=== PATIENT | male | born 1955 | race American Indian/Alaskan Native ===

== ENCOUNTER 2019-04-27 14:58 | Inpatient (IN) | payer OTHER ==
--- NOTE | 2019-04-27 15:13 | Emergency Department Report ---
Blank Doc - Documentation Documentation: This is a 63-year-old male that presents with uncontrolled hyperglycemia. This initial assessment/diagnostic orders/clinical plan/treatment(s) is/are subject to change based on patient's health status, clinical progression and re- assessment by fellow clinical providers in the ED. Further treatment and workup at subsequent clinical providers discretion. Patient/guardians urged not to elope from the ED as their condition may be serious if not clinically assessed and managed. Initial orders include: 1- Patient sent to MAIN for further evaluation and treatment 2- labs 3- UA
[2019-04-27 16:07] LABS: Basophils % (Auto) 0.5 % (0.0-1.8); Eosinophils # (Auto) 0.1 K/mm3 (0.0-0.4); Hematocrit 38.1 % (35.5-45.6); Hemoglobin 13.5 gm/dl (11.8-15.2); Lymphocytes # (Auto) 2.1 K/mm3 (1.2-5.4); Lymphocytes % (Auto) 24.6 % (13.4-35.0); Mean Corpuscular HGB Conc 36 % (32-34); Mean Corpuscular Volume 87 fl (84-94); Monocytes # (Auto) 0.5 K/mm3 (0.0-0.8); Monocytes % (Auto) 5.4 % (0.0-7.3); Platelet Count 227 K/mm3 (140-440); Red Blood Count 4.36 M/mm3 (3.65-5.03)
[2019-04-27] MEDS ORDERED: NACL 0.9% 1000 ML 1,000 ML IV ONE ×2 (16:09)
[2019-04-27] MEDS ORDERED: PROTONIX IV ONE (16:09)
--- NOTE | 2019-04-27 16:18 | Emergency Department Report ---
- General Chief complaint: Hyperglycemia Stated complaint: HIGH SUGAR LEVEL Time Seen by Provider: 04/27/19 15:12 Source: patient Mode of arrival: Ambulatory Limitations: No Limitations - History of Present Illness Initial comments: Mr. Ybarra is a 63-year-old male with history of diabetes mellitus, hypertension, dyslipidemia, cardiac disease status post pacemaker who presents with elevated blood sugar. He has blurry vision/dizziness. He's also had dark stools over the last 7 days. He felt that his sugar was elevated. His physician changed metformin from a short acting to long-acting version. He normally treated at [facility]. However, he was too sick and dizzy to drive to the [place]. He stated that he felt unsafe to drive that far. 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 Has had mild nondescript RUQ pain. He also has chronic back pain which is unchanged. MD Complaint: generalized weakness -: Gradual, days(s) (5-8) Severity: severe Severity scale (0 -10): 10 Consistency: constant Improves with: none Worsens with: exertion Context: new medication Associated Symptoms: dark stools - Related Data Home Medications Medication Instructions Recorded Confirmed Last Taken Atorvastatin [Lipitor Tab] 80 mg PO DAILY 04/27/19 04/27/19 Unknown Lisinopril [Zestril TAB] 40 mg PO DAILY 04/27/19 04/27/19 Unknown Metoprolol [Lopressor] 100 mg PO BID 04/27/19 04/27/19 Unknown amLODIPine [Norvasc] 10 mg PO DAILY 04/27/19 04/27/19 Unknown metFORMIN [Glucophage] 500 mg PO TID 04/27/19 04/27/19 Unknown Allergies Allergy/AdvReac Type Severity Reaction Status Date / Time No Known Allergies Allergy Unverified 04/27/19 15:12 ED Review of Systems ROS: Stated complaint: HIGH SUGAR LEVEL Other details as noted in HPI Comment: All other systems reviewed and negative Constitutional: malaise. denies: fever Gastrointestinal: abdominal pain, melena, hematochezia. denies: nausea, vomiting Neurological: weakness ED Past Medical Hx - Past Medical History Previous Medical History?: Yes Hx Hypertension: Yes Hx Diabetes: Yes Additional medical history: high cholesterol - Surgical History Past Surgical History?: Yes Hx Appendectomy: Yes Additional Surgical History: hernia repair. pacemaker - Social History Smoking Status: Current Every Day Smoker Substance Use Type: Alcohol - Medications Home Medications: Home Medications Medication Instructions Recorded Confirmed Last Taken Type Atorvastatin [Lipitor Tab] 80 mg PO DAILY 04/27/19 04/27/19 Unknown History Lisinopril [Zestril TAB] 40 mg PO DAILY 04/27/19 04/27/19 Unknown History Metoprolol [Lopressor] 100 mg PO BID 04/27/19 04/27/19 Unknown History amLODIPine [Norvasc] 10 mg PO DAILY 04/27/19 04/27/19 Unknown History metFORMIN [Glucophage] 500 mg PO TID 04/27/19 04/27/19 Unknown History ED Physical Exam - General Limitations: No Limitations General appearance: alert, in no apparent distress, appears intoxicated - Head Head exam: Present: atraumatic, normocephalic - Eye Eye exam: Present: normal appearance, scleral icterus. Absent: conjunctival injection - ENT ENT exam: Present: mucous membranes moist - Neck Neck exam: Present: normal inspection, full ROM - Respiratory Respiratory exam: Present: normal lung sounds bilaterally. Absent: respiratory distress, wheezes, rhonchi - Cardiovascular Cardiovascular Exam: Present: normal rhythm, tachycardia, normal heart sounds. Absent: systolic murmur, diastolic murmur, rubs, gallop - GI/Abdominal GI/Abdominal exam: Present: soft, normal bowel sounds. Absent: distended, tenderness, guarding, rebound - Rectal Rectal exam: Present: normal rectal tone, heme (+) stool, other (dark green stool) - exam: Present: normal inspection - Extremities Exam Extremities exam: Present: normal inspection - Back Exam Back exam: Present: normal inspection - Neurological Exam Neurological exam: Present: alert, oriented X3 - Psychiatric Psychiatric exam: Present: normal mood, other (labile affect) - Skin Skin exam: Present: warm, dry, intact, normal color. Absent: rash ED Course Vital Signs 04/27/19 15:12 Temperature 97.8 F Pulse Rate 111 H Respiratory 20 Rate Blood Pressure 98/62 O2 Sat by Pulse 98 Oximetry ED Medical Decision Making - Lab Data Result diagrams: 04/27/19 15:26 04/27/19 15:26 - EKG Data 04/27/19 17:19 EKG obtained 1705 Normal sinus rhythm rate 90 beats a minute left axis deviation normal QT interva l no ST elevation no signs of ischemia - Medical Decision Making 1. hyperglycemia hx of diabetes mellitus: IVF provided as well as insulin 2. UGIB, hx of dark stools, hemoccult+, elevated BUN, DDX: alcoholic gastritis, bleeding due to varices, PUD, IV protonix, GI consulted, discussed case wt Dr. Cardenas 3. Prerenal Acute kidney injury, Corrected sodium 131-134, mild hyponatremia attributed to alcohol abuse, will need volume, GFR 38 and anion gap 26 4. hyponatremia Critical Care Time: Yes Critical care time in (mins) excluding proc time.: 40 Critical care attestation.: If time is entered above; I have spent that time in minutes in the direct care of this critically ill patient, excluding procedure time. 40 minutes of critical care time excluding procedures were used in the care of the patient. Patient required multiple assessments and interventions. I reviewed the electronic medical record. I spoke with consultants involved in the care of the patient. ED Disposition Clinical Impression: MARY (acute kidney injury), UGIB (upper gastrointestinal bleed), Hyponatremia, Acute hyperglycemia Disposition: DC-[id number] OP ADMIT IP TO THIS HOSP Is pt being admited?: Yes Does the pt Need Aspirin: No Condition: Stable Referrals: PRIMARY CARE, [Primary Care Provider] - 3-5 Days
[2019-04-27 17:14] LABS: Hyaline Casts,Urine 2 /LPF
[2019-04-27 17:26] LABS: Bilirubin,Urine NEG (Negative); Blood,Urine NEG (Negative); Color,Urine Yellow (Yellow); Protein,Urine <15 mg/dL mg/dL (Negative); Urobilinogen,Urine < 2.0 mg/dL (<2.0)
[2019-04-27 17:27] LABS: Bacteria,Urine 1+ /HPF (Negative); Mucus,Urine FEW /HPF
[2019-04-27 17:35] LABS: INR 1.11 (0.87-1.13)
[2019-04-27] MEDS ORDERED: D50W (25GM) Syringe IV PRN (17:38)
--- NOTE | 2019-04-27 17:47 | History and Physical Report ---
History of Present Illness Chief complaint: I just feel sick, like my blood sugar is high History of present illness: 63 YO Male with DM, HTN, HLD, Cardiomyopathy S/P Pacemaker Placement, ETOH Depencence presents to ED for evaluation. Pt states that he feels sick. Pt acknowledges feeling weak, dizzy while driving. Pt drove himself to [facility]. Pt seen and evaluated in ED and found to have Uncontrolled DM, Acute kidney Injury, Acidosis, as well as ETOH dependence. Pt also reports dark stools over the past 1 week. Pt admitted to medical floor. Pt treated with IVF resuscitation therapy, Insulin therapy with improvement in symptoms. Pt denies fever, chills, CP, Palpitations, loss of vision, headache, BRBPR, productive cough, skin rash, unilateral leg swelling, calf pain, individual/family history of DVT/PE/Bleeding/Blood Clotting Disorders. No prior admission for review. All listed medication reconciled at time of admission. Past History Past Medical History: diabetes, hypertension, hyperlipidemia, other (Cardiomyopathy) Past Surgical History: appendectomy, hernia repair, Other (pacemaker placement) Social history: single, smoking, alcohol abuse Family history: diabetes, hypertension Medications and Allergies Allergies Allergy/AdvReac Type Severity Reaction Status Date / Time No Known Allergies Allergy Unverified 04/27/19 15:12 Home Medications Medication Instructions Recorded Confirmed Last Taken Type Atorvastatin [Lipitor Tab] 80 mg PO DAILY 04/27/19 04/27/19 Unknown History Lisinopril [Zestril TAB] 40 mg PO DAILY 04/27/19 04/27/19 Unknown History Metoprolol [Lopressor] 100 mg PO BID 04/27/19 04/27/19 Unknown History amLODIPine [Norvasc] 10 mg PO DAILY 04/27/19 04/27/19 Unknown History metFORMIN [Glucophage] 500 mg PO TID 04/27/19 04/27/19 Unknown History Active Meds: Active Medications Amlodipine Besylate (Norvasc) 10 mg PO DAILY NADIA Lisinopril (Zestril) 40 mg PO DAILY NADIA Metoprolol Tartrate (Lopressor) 100 mg PO BID [facility] Miscellaneous Medication (Atorvastatin [Lipitor]) 80 mg PO DAILY NADIA Review of Systems Constitutional: fatigue, weakness, no weight loss, no weight gain, no fever, no chills Ears, nose, mouth and throat: no ear pain, no ear discharge, no tinnitis, no nasal congestion Cardiovascular: no chest pain, no orthopnea, no edema, no syncope, no lightheadedness, no shortness of breath Respiratory: no cough, no cough with sputum, no excessive sputum, no shortness of breath, no dyspnea on exertion, no congestion, no pleurisy, no pain on inspiration, no snoring Gastrointestinal: no abdominal pain, no nausea, no vomiting, no diarrhea, no hematemesis Genitourinary Male: no hematuria, no flank pain, no discharge, no urinary frequency, no urinary hesitancy, no nocturia Rectal: no pain, no incontinence, no bleeding, no hemorrhoids, no discharge Musculoskeletal: no neck stiffness, no neck pain, no shooting arm pain, no arm numbness/tingling, no low back pain, no shooting leg pain, no leg numbness/tingling Integumentary: no rash, no pruritis, no redness, no sores Neurological: no transient paralysis, no paralysis, no weakness, no parathesias, no tingling, no seizures, no syncope, no tremors Psychiatric: no anxiety, no memory loss, no change in sleep habits, no sleep disturbances, no insomnia, no hypersomnia, no change in appetite, no change in libido Endocrine: no cold intolerance, no heat intolerance, no polyphagia, no excessive thirst, no polydipsia, no polyuria, no nocturia Hematologic/Lymphatic: no easy bruising, no easy bleeding, no lymphadenopathy, no lymphedema Allergic/Immunologic: no urticaria, no allergic rhinitis, no wheezing, no persistent infections, no anaphylaxis, no angioedema Exam - Constitutional Vitals: Temp Pulse Resp BP Pulse Ox 97.8 F 111 H 20 98/62 98 04/27/19 15:12 04/27/19 15:12 04/27/19 15:12 04/27/19 15:12 04/27/19 15:12 General appearance: Present: mild distress - EENT Eyes: Present: PERRL ENT: hearing intact, clear oral mucosa - Neck Neck: Present: supple, normal ROM - Respiratory Respiratory effort: normal Respiratory: bilateral: CTA - Cardiovascular Heart Sounds: Present: S1 & S2. Absent: rub, click - Extremities Extremities: pulses symmetrical, No edema Peripheral Pulses: within normal limits - Abdominal General gastrointestinal: Present: soft, non-tender, non-distended, normal bowel sounds Male genitourinary: Present: normal - Integumentary Integumentary: Present: clear, warm, dry - Musculoskeletal Musculoskeletal: gait normal, strength equal bilaterally - Psychiatric Psychiatric: appropriate mood/affect, intact judgment & insight - Neurologic Neurologic: CNII-XII intact, moves all extremities Results - Labs CBC & Chem 7: 04/27/19 15:26 04/27/19 15:26 Labs: Abnormal lab results 04/27/19 04/27/19 Range/Units 15:26 15:26 MCHC 36 H (32-34) % RDW 13.0 L (13.2-15.2) % Sodium 124 L (137-145) mmol/L Chloride 84.9 L (98-107) mmol/L Carbon Dioxide 18 L (22-30) mmol/L BUN 60 H (9-20) mg/dL Creatinine 1.8 H (0.8-1.5) mg/dL Glucose 537 H* (75-100) mg/dL Assessment and Plan - Patient Problems (1) MARY (acute kidney injury) Current Visit: Yes Status: Acute Plan to address problem: IVF resuscitation therapy, monitor uop q shift, serial cmp, monitor serum creatnine, avoid nephrotoxic agents. (2) Acute hyperglycemia Current Visit: Yes Status: Acute Plan to address problem: Insulin sliding scale, IVF resuscitation therapy, serial bmp, (3) Acidosis Current Visit: Yes Status: Acute Plan to address problem: IV bicarbonate therapy, serial bmp, (4) EtOH dependence Current Visit: Yes Status: Acute Qualifiers: Complication of substance-induced condition: uncomplicated Plan to address problem: thiamine, folic acid, multivitamin, CIWA protocol (5) Hyponatremia Current Visit: Yes Status: Acute Plan to address problem: IVF resuscitation therapy, treat uncontrolled DM, repeat bmp, (6) DVT prophylaxis Current Visit: Yes Status: Acute Plan to address problem: SCD to BLE while in bed, prophylactic heparin
[2019-04-27] MEDS ORDERED: THERAGRAN Tab PO ONE (17:53)
[2019-04-27] MEDS ORDERED: VITAMIN B-1 PO ONE (17:53)
[2019-04-27] MEDS ORDERED: ATIVAN PO PRN (17:53)
[2019-04-27] MEDS ORDERED: SODIUM CHLORIDE FLUSH SYRINGE 10 ML IV PRN (18:00)
[2019-04-27] MEDS ORDERED: TYLENOL PO PRN (18:00)
[2019-04-27] MEDS ORDERED: PROVENTIL IH PRN (18:00)
[2019-04-27] MEDS ORDERED: ZOFRAN IV PRN (18:00)
[2019-04-27 18:03] LABS: Partial Thromboplastin Time 32.3 Sec. (24.2-36.6)
[2019-04-27] MEDS: HumaLOG SUB-Q SCH (18:13)
[2019-04-27] MEDS: FOLVITE PO SCH (18:23)
--- NOTE | 2019-04-27 18:32 | Gastroenterology Consultation ---
History of Present Illness - Reason for Consult Consult date: 04/27/19 abdominal pain, dark stool Requesting physician: SAM MONTENEGRO - History of Present Illness This is a 63 yo male with pmh of DM, HTN, cardiomyopathy s/p pacemaker placement, ETOH dependence presenting to the ED for weakness and found to have hyperglycemia with BG in 500s. He also having dark stools for the past 1-2 weeks intermittently and epigastric abdominal pain with eating or drinking. Denies any prior GI bleeding history. He takes motrin back 2 tabs daily for 1 month. Denies any bright red blood in the stool. Reports his last colonoscopy was Sep 2018 at the [facility] with polyps and told to repeat in 1 year. Medication list updated and reviewed Past History Past Medical History: diabetes, hypertension, hyperlipidemia, other (Cardiomyopathy) Past Surgical History: appendectomy, hernia repair, Other (pacemaker placement) Social history: single, smoking, alcohol abuse Family history: diabetes, hypertension Medications and Allergies Allergies Allergy/AdvReac Type Severity Reaction Status Date / Time No Known Allergies Allergy Unverified 04/27/19 15:12 Home Medications Medication Instructions Recorded Confirmed Last Taken Type Atorvastatin [Lipitor Tab] 80 mg PO DAILY 04/27/19 04/27/19 Unknown History Lisinopril [Zestril TAB] 40 mg PO DAILY 04/27/19 04/27/19 Unknown History Metoprolol [Lopressor] 100 mg PO BID 04/27/19 04/27/19 Unknown History amLODIPine [Norvasc] 10 mg PO DAILY 04/27/19 04/27/19 Unknown History metFORMIN [Glucophage] 500 mg PO TID 04/27/19 04/27/19 Unknown History Active Meds: Active Medications Acetaminophen (Tylenol) 650 mg PO Q4H PRN PRN Reason: Pain MILD(1-3)/Fever >100.5/VILLAR Albuterol (Proventil) 2.5 mg IH Q4HRT PRN PRN Reason: Shortness Of Breath Amlodipine Besylate (Norvasc) 10 mg PO DAILY [facility] Atorvastatin Calcium (Lipitor) 80 mg PO QDAY [facility] Dextrose (D50w (25gm) Syringe) 50 ml IV PRN PRN PRN Reason: Hypoglycemia Famotidine (Pepcid) 10 mg PO BID [facility] Folic Acid (Folvite) 1 mg PO QDAY [facility] Last Admin: 04/27/19 18:23 Dose: 1 mg Documented by: Heparin Sodium (Porcine) (Heparin) 5,000 unit SUB-Q Q12HR [facility] Sodium Chloride (Nacl 0.9% 1000 Ml) 1,000 mls @ 100 mls/hr IV DIRECT NADIA Insulin Human Lispro (Humalog) 0 unit SUB-Q Q6HR [facility]; Protocol Last Admin: 04/27/19 18:13 Dose: 14 unit Documented by: Lisinopril (Zestril) 40 mg PO DAILY [facility] Lorazepam (Ativan) 2 mg PO Q1HR PRN PRN Reason: CIWA-Ar 8-15 Metoprolol Tartrate (Lopressor) 100 mg PO BID [facility] Ondansetron HCl (Zofran) 4 mg IV Q8H PRN PRN Reason: Nausea And Vomiting Pantoprazole Sodium (Protonix) 40 mg IV BID [facility] Sodium Chloride (Sodium Chloride Flush Syringe 10 Ml) 10 ml IV BID [facility] Sodium Chloride (Sodium Chloride Flush Syringe 10 Ml) 10 ml IV PRN PRN PRN Reason: LINE FLUSH Review of Systems - Review of Systems All systems: negative Constitutional: no weight loss, no weight gain Cardiovascular: no chest pain Respiratory: no cough, no shortness of breath Gastrointestinal: abdominal pain, nausea, melena, no BRBPR Neurological: weakness Exam - Constitutional Vital Signs: Temp Pulse Resp BP Pulse Ox 97.8 F 111 H 18 98/62 100 04/27/19 15:12 04/27/19 15:12 04/27/19 16:00 04/27/19 15:12 04/27/19 16:00 General appearance: no acute distress, well-nourished - EENT Eyes: EOM intact ENT: hearing intact, clear oral mucosa - Neck Neck: supple - Respiratory Respiratory effort: normal Respiratory: bilateral: CTA - Cardiovascular Rhythm: regular Heart Sounds: Present: S1 & S2 - Gastrointestinal General gastrointestinal: Present: soft, non-tender, non-distended - Integumentary Integumentary: Present: clear, warm - Neurologic Neurological: alert and oriented x3 - Labs CBC & Chem 7: 04/27/19 15:26 04/27/19 15:26 Lab Results: Laboratory Results - last 24 hr 04/27/19 04/27/19 04/27/19 15:26 15:26 15:26 WBC 8.6 RBC 4.36 Hgb 13.5 Hct 38.1 MCV 87 MCH 31 MCHC 36 H RDW 13.0 L Plt Count 227 Lymph % (Auto) 24.6 [place] % (Auto) 5.4 Eos % (Auto) 1.0 Baso % (Auto) 0.5 Lymph # 2.1 [place] # 0.5 Eos # 0.1 Baso # 0.0 Seg Neutrophils % 68.5 Seg Neutrophils # 5.9 PT INR APTT VBG pH 7.345 Sodium 124 L Potassium 4.9 Chloride 84.9 L Carbon Dioxide 18 L Anion Gap 26 BUN 60 H Creatinine 1.8 H Estimated GFR 38 BUN/Creatinine Ratio 33 Glucose 537 H* POC Glucose Calcium 10.0 Urine Color Urine Turbidity Urine pH Ur Specific [place] Urine Protein Urine Glucose (UA) Urine Ketones Urine Blood Urine Nitrite Ur Reducing Substances Urine Bilirubin Urine Ictotest Urine Urobilinogen Ur Leukocyte Esterase Urine WBC (Auto) Urine RBC (Auto) U Epithel Cells (Auto) Urine Bacteria (Auto) Hyaline Casts Urine Mucus 04/27/19 04/27/19 04/27/19 16:47 17:07 18:15 WBC RBC Hgb Hct MCV MCH MCHC RDW Plt Count Lymph % (Auto) [place] % (Auto) Eos % (Auto) Baso % (Auto) Lymph # [place] # Eos # Baso # Seg Neutrophils % Seg Neutrophils # PT 14.0 INR 1.11 APTT 32.3 VBG pH Sodium Potassium Chloride Carbon Dioxide Anion Gap BUN Creatinine Estimated GFR BUN/Creatinine Ratio Glucose POC Glucose 445 H Calcium Urine Color Yellow Urine Turbidity Clear Urine pH 5.0 Ur Specific [place] 1.014 Urine Protein <15 mg/dl Urine Glucose (UA) >=500 Urine Ketones Tr Urine Blood Neg Urine Nitrite Neg Ur Reducing Substances Not Reportable Urine Bilirubin Neg Urine Ictotest Not Reportable Urine Urobilinogen < 2.0 Ur Leukocyte Esterase Neg Urine WBC (Auto) 1.0 Urine RBC (Auto) 2.0 U Epithel Cells (Auto) < 1.0 Urine Bacteria (Auto) 1+ Hyaline Casts 2 Urine Mucus Few Assessment and Plan # Dark stools # Abdominal pain # Hyperglycemia. - suspect gastritis vs PUD in the setting of NSAID and alcohol use. - Hgb at 13 on admission. - no active bleeding at this time. Rec: - cont with protonix bid. - monitor H/H serially. - management for hyperglycemia per primary team. - will consider EGD based on clinical progression/lab trend and once BG better controlled.
[2019-04-27 18:34] LABS: Albumin 4.5 g/dL (3.9-5); Bilirubin,Direct 0.3 mg/dL (0-0.2)
[2019-04-27] MEDS: SODIUM CHLORIDE FLUSH SYRINGE 10 ML IV SCH (22:37)
[2019-04-27] MEDS: PEPCID PO SCH (22:37)
[2019-04-27] MEDS: PROTONIX IV SCH (22:37)
[2019-04-27] MEDS: LOPRESSOR PO SCH (22:37)
[2019-04-27] MEDS: HEPARIN SUB-Q SCH (22:38)
[2019-04-28] MEDS: HumaLOG SUB-Q SCH ×5 (00:22→22:33)
[2019-04-28] MEDS: NACL 0.9% 1000 ML 1,000 ML IV SCH ×2 (00:22→22:43)
--- NOTE | 2019-04-28 08:31 | Progress Note ---
Assessment and Plan Assessment and plan: --MARY (acute kidney injury) Current Visit: Yes Status: Acute Plan to address problem: Due to vasomotor nephropathy IVF resuscitation therapy, Input output monitoring , monitor renal function , avoid nephrotoxins Nephrology evaluation if needed --Type 2 diabetes mellitus with acute hyperglycemia: Current Visit: Yes Status: Acute Plan to address problem: Insulin sliding scale, IVF resuscitation therapy, long acting insulin A1c less than 4.2, diabetic education, nutrition consult --Metabolic Acidosis Current Visit: Yes Status: Acute Plan to address problem: IV bicarbonate therapy, serial bmp, --EtOH dependence Current Visit: Yes Status: Acute Plan to address problem: thiamine, folic acid, multivitamin, CIWA protocol --Hyponatremia Current Visit: Yes Status: Acute Plan to address problem: IVF resuscitation therapy, treat uncontrolled DM, repeat bmp, --DVT prophylaxis Current Visit: Yes Status: Acute Plan to address problem: SCD to BLE while in bed, prophylactic heparin Plan of care reviewed with the patient and his nurse History Interval history: 3-year-old male patient was admitted through emergency room with uncontrolled blood sugars as well as rectal bleeding Patient was evaluated by GI, patient is hemodynamically stable and no new episodes of rectal bleeding Blood sugars are uncontrolled. Patient complains of generalized weakness Alert awake oriented 3 ,vital signs reviewed Hospitalist Physical - Constitutional Vitals: Temp Pulse Resp BP Pulse Ox 98 F 83 18 112/69 99 04/28/19 05:00 04/28/19 05:00 04/28/19 05:00 04/28/19 05:00 04/28/19 05:00 General appearance: Present: no acute distress, well-nourished, obese - EENT Eyes: Present: PERRL, EOM intact - Neck Neck: Present: supple, normal ROM - Respiratory Respiratory effort: normal Respiratory: bilateral: diminished, negative: rales, rhonchi, wheezing - Cardiovascular Rhythm: regular Heart Sounds: Present: S1 & S2 - Extremities Extremities: no ischemia, No edema - Abdominal General gastrointestinal: soft, non-tender, non-distended, normal bowel sounds - Integumentary Integumentary: Present: clear, warm - Psychiatric Psychiatric: appropriate mood/affect, cooperative - Neurologic Neurologic: CNII-XII intact, moves all extremities Results - Labs CBC & Chem 7: 04/28/19 08:40 04/28/19 08:40 Labs: Laboratory Last Values WBC 8.6 K/mm3 (4.5-11.0) 04/27/19 15: RBC 4.36 M/mm3 (3.65-5.03) 04/27/19 15: Hgb 13.5 gm/dl (11.8-15.2) 04/27/19 15: Hct 38.1 % (35.5-45.6) 04/27/19 15: MCV 87 fl (84-94) 04/27/19 15: MCH 31 pg (28-32) 04/27/19 15: MCHC 36 % (32-34) H 04/27/19: RDW 13.0 % (13.2-15.2) L 04/27/19: Plt Count 227 K/mm3 (140-440) 04/27/19 15: Lymph % (Auto) 24.6 % (13.4-35.0) 04/27/19: [place] % (Auto) 5.4 % (0.0-7.3) 04/27/19 15: Eos % (Auto) 1.0 % (0.0-4.3) 04/27/19: Baso % (Auto) 0.5 % (0.0-1.8) 04/27/19 15: Lymph # 2.1 K/mm3 (1.2-5.4) 04/27/19 15: [place] # 0.5 K/mm3 (0.0-0.8) 04/27/19: Eos # 0.1 K/mm3 (0.0-0.4) 04/27/19 15: Baso # 0.0 K/mm3 (0.0-0.1) 04/27/19 15: Seg Neutrophils % 68.5 % (40.0-70.0) 04/27/19: Seg Neutrophils # 5.9 K/mm3 (1.8-7.7) 04/27/19 15: PT 14.0 Sec. (12.2-14.9) 04/27/19 17:07 INR 1.11 (0.87-1.13) 04/27/19 17:07 APTT 32.3 Sec. (24.2-36.6) 04/27/19 17:07 VBG pH 7.345 (7.320-7.420) 04/27/19 15:26 Sodium 124 mmol/L (137-145) L 04/27/19 15:26 Potassium 4.9 mmol/L (3.6-5.0) 04/27/19 15:26 Chloride 84.9 mmol/L (98-107) L 04/27/19 15:26 Carbon Dioxide 18 mmol/L (22-30) L 04/27/19 15:26 26 mmol/L 04/27/19 15:26 BUN 60 mg/dL (9-20) H 04/27/19 15:26 1.8 mg/dL (0.8-1.5) H 04/27/19 15:26 Estimated GFR 38 ml/min 04/27/19 15:26 33 % 04/27/19 15:26 Glucose 537 mg/dL (75-100) H* 04/27/19 15:26 POC Glucose 255 (70-105) H 04/28/19 06:28 < 4.2 % (4-6) 04/27/19 18:04 Calcium 10.0 mg/dL (8.4-10.2) 04/27/19 15:26 1.20 mg/dL (0.1-1.2) 04/27/19 16:15 0.3 mg/dL (0-0.2) H 04/27/19 16:15 0.9 mg/dL 04/27/19 16:15 AST 28 units/L (5-40) 04/27/19 16:15 ALT 32 units/L (7-56) 04/27/19 16:15 101 units/L (35-129) 04/27/19 16:15 7.3 g/dL (6.3-8.2) 04/27/19 16:15 4.5 g/dL (3.9-5) 04/27/19 16:15 1.6 % 04/27/19 16:15 8 units/L (13-60) L 04/27/19 16:18 Yellow (Yellow) 04/27/19 16:47 Clear (Clear) 04/27/19 16:47 5.0 (5.0-7.0) 04/27/19 16:47 Ur Specific [place] 1.014 (1.003-1.030) 04/27/19 16:47 <15 mg/dl mg/dL (Negative) 04/27/19 16:47 >=500 mg/dL (Negative) 04/27/19 16:47 Tr mg/dL (Negative) 04/27/19 16:47 Neg (Negative) 04/27/19 16:47 Neg (Negative) 04/27/19 16:47 Ur Reducing Substances Not Reportable 04/27/19 16:47 Neg (Negative) 04/27/19 16:47 Not Reportable 04/27/19 16:47 < 2.0 mg/dL (<2.0) 04/27/19 16:47 Ur Leukocyte Esterase Neg (Negative) 04/27/19 16:47 1.0 /HPF (0.0-6.0) 04/27/19 16:47 2.0 /HPF (0.0-6.0) 04/27/19 16:47 U Epithel Cells (Auto) < 1.0 /HPF (0-13.0) 04/27/19 16:47 1+ /HPF (Negative) 04/27/19 16:47 Hyaline Casts 2 /LPF 04/27/19 16:47 Few /HPF 04/27/19 16:47 Plasma/Serum Alcohol < 0.01 % (0-0.07) 04/27/19 16:16 Active Medications - Current Medications Current Medications: Generic Name Dose Route Start Last Admin Trade Name Freq PRN Reason Stop Dose Admin Acetaminophen 650 mg 04/27/19 18:00 Tylenol PO Q4H PRN Pain MILD(1-3)/Fever >100.5/VILLAR Albuterol 2.5 mg 04/27/19 18:00 Proventil IH Q4HRT PRN Shortness Of Breath Amlodipine Besylate 10 mg 04/28/19 10:00 Norvasc PO DAILY NADIA Atorvastatin Calcium 80 mg 04/28/19 10:00 Lipitor PO QDAY NADIA Dextrose 50 ml 04/27/19 17:38 D50w (25gm) Syringe IV PRN PRN Hypoglycemia Famotidine 10 mg 04/27/19 22:00 04/27/19 22:37 Pepcid PO 10 mg BID NADIA Administration Folic Acid 1 mg 04/27/19 17:53 04/27/19 18:23 Folvite PO 1 mg QDAY NADIA Administration Heparin Sodium (Porcine) 5,000 unit 04/27/19 22:00 04/27/19 22:38 Heparin SUB-Q 5,000 unit Q12HR NADIA Administration Sodium Chloride 1,000 mls @ 100 mls/hr 04/27/19 18:00 04/28/19 00:22 Nacl 0.9% 1000 Ml IV 100 mls/hr DIRECT NADIA Administration Insulin Human Isoph/Insulin Regular 12 unit 04/28/19 09:30 Humulin 70/30 SUB-Q BIDDIAB NADIA Insulin Human Lispro 0 unit 04/28/19 11:30 Humalog SUB-Q ACHS [facility] Protocol Lisinopril 40 mg 04/28/19 10:00 Zestril PO DAILY NADIA Lorazepam 2 mg 04/27/19 17:53 Ativan PO Q1HR PRN CIWA-Ar 8-15 Metoprolol Tartrate 100 mg 04/27/19 22:00 04/27/19 22:37 Lopressor PO Not Given BID NADIA Nicotine 14 mg 04/28/19 10:00 Habitrol TD QDAY NADIA Ondansetron HCl 4 mg 04/27/19 18:00 Zofran IV Q8H PRN Nausea And Vomiting Pantoprazole Sodium 40 mg 04/27/19 22:00 04/27/19 22:37 Protonix IV 40 mg BID NADIA Administration Sodium Chloride 10 ml 04/27/19 22:00 04/27/19 22:37 Sodium Chloride Flush Syringe 10 Ml IV 10 ml BID NADIA Administration Sodium Chloride 10 ml 04/27/19 18:00 Sodium Chloride Flush Syringe 10 Ml IV PRN PRN LINE FLUSH
[2019-04-28 09:38] LABS: Basophils % (Auto) 0.5 % (0.0-1.8); Eosinophils # (Auto) 0.2 K/mm3 (0.0-0.4); Eosinophils % (Auto) 3.1 % (0.0-4.3); Hematocrit 32.2 % (35.5-45.6); Hemoglobin 10.8 gm/dl (11.8-15.2); Lymphocytes # (Auto) 1.5 K/mm3 (1.2-5.4); Lymphocytes % (Auto) 26.9 % (13.4-35.0); Mean Corpuscular HGB Conc 34 % (32-34); Mean Corpuscular Volume 90 fl (84-94); Monocytes # (Auto) 0.4 K/mm3 (0.0-0.8); Monocytes % (Auto) 7.8 % (0.0-7.3); Platelet Count 165 K/mm3 (140-440); Red Cell Distribution Width 12.8 % (13.2-15.2)
[2019-04-28] MEDS ORDERED: NON-FORMULARY (Atorvastatin [Lipitor] 80 MG) PO SCH (10:00)
[2019-04-28 10:02] LABS: BUN/Creatinine Ratio 33; Blood Urea Nitrogen 43 mg/dL (9-20); Calcium 8.9 mg/dL (8.4-10.2); Hemolysis Index 4
--- NOTE | 2019-04-28 10:29 | Gastroenterology Progress Note ---
Assessment and Plan # Dark stools # Abdominal pain # Hyperglycemia. -H/H 10.8/32.2 -continue to monitor H/H and transfuse as needed -no active signs of bleeding overnight or this am per pt -etiology-suspect gastritis vs PUD in the setting of NSAID and alcohol use -currently w/o GI complaints such as abd pain or N/V. Tolerating diet. -no plan for scope at this time -continue PPI -optimize glycemic control -alcohol cessation discussed/encouraged with patient -if H/H remains stable with no further bleeding, patient okay to be d/c per GI standpoint with f/u in clinic -will sign off, please call if needed Subjective Date of service: 04/28/19 Principal diagnosis: UGIB Interval history: Patient sitting up on the side of the bed this am w/o distress or GI complaints. Denies any active signs of bleeding overnight or this am. No abd pain or N/V. Tolerating diet. Objective - Constitutional Vitals: Temp Pulse Resp BP Pulse Ox 98 F 83 18 112/69 97 04/28/19 05:00 04/28/19 05:00 04/28/19 05:00 04/28/19 05:00 04/28/19 09:38 General appearance: no acute distress - Respiratory Respiratory effort: normal - Cardiovascular Rhythm: regular - Gastrointestinal General gastrointestinal: Present: soft, non-tender, non-distended, normal bowel sounds - Neurologic Neurological: alert and oriented x3 - Labs CBC & Chem 7: 04/28/19 08:40 04/28/19 08:40 Labs: Laboratory Results - last 24 hr 04/27/19 04/27/19 04/27/19 15:26 15:26 15:26 WBC 8.6 RBC 4.36 Hgb 13.5 Hct 38.1 MCV 87 MCH 31 MCHC 36 H RDW 13.0 L Plt Count 227 Lymph % (Auto) 24.6 [place] % (Auto) 5.4 Eos % (Auto) 1.0 Baso % (Auto) 0.5 Lymph # 2.1 [place] # 0.5 Eos # 0.1 Baso # 0.0 Seg Neutrophils % 68.5 Seg Neutrophils # 5.9 PT INR APTT VBG pH 7.345 Sodium 124 L Potassium 4.9 Chloride 84.9 L Carbon Dioxide 18 L Anion Gap 26 BUN 60 H Creatinine 1.8 H Estimated GFR 38 BUN/Creatinine Ratio 33 Glucose 537 H* POC Glucose Hemoglobin A1c Calcium 10.0 Total Bilirubin Direct Bilirubin Indirect Bilirubin AST ALT Alkaline Phosphatase Total Protein Albumin Albumin/Globulin Ratio Lipase Urine Color Urine Turbidity Urine pH Ur Specific [place] Urine Protein Urine Glucose (UA) Urine Ketones Urine Blood Urine Nitrite Ur Reducing Substances Urine Bilirubin Urine Ictotest Urine Urobilinogen Ur Leukocyte Esterase Urine WBC (Auto) Urine RBC (Auto) U Epithel Cells (Auto) Urine Bacteria (Auto) Hyaline Casts Urine Mucus Plasma/Serum Alcohol 04/27/19 04/27/19 04/27/19 16:15 16:16 16:18 WBC RBC Hgb Hct MCV MCH MCHC RDW Plt Count Lymph % (Auto) [place] % (Auto) Eos % (Auto) Baso % (Auto) Lymph # [place] # Eos # Baso # Seg Neutrophils % Seg Neutrophils # PT INR APTT VBG pH Sodium Potassium Chloride Carbon Dioxide Anion Gap BUN Creatinine Estimated GFR BUN/Creatinine Ratio Glucose POC Glucose Hemoglobin A1c Calcium Total Bilirubin 1.20 Direct Bilirubin 0.3 H Indirect Bilirubin 0.9 AST 28 ALT 32 Alkaline Phosphatase 101 Total Protein 7.3 Albumin 4.5 Albumin/Globulin Ratio 1.6 Lipase 8 L Urine Color Urine Turbidity Urine pH Ur Specific [place] Urine Protein Urine Glucose (UA) Urine Ketones Urine Blood Urine Nitrite Ur Reducing Substances Urine Bilirubin Urine Ictotest Urine Urobilinogen Ur Leukocyte Esterase Urine WBC (Auto) Urine RBC (Auto) U Epithel Cells (Auto) Urine Bacteria (Auto) Hyaline Casts Urine Mucus Plasma/Serum Alcohol < 0.01 04/27/19 04/27/19 04/27/19 16:47 17:07 18:04 WBC RBC Hgb Hct MCV MCH MCHC RDW Plt Count Lymph % (Auto) [place] % (Auto) Eos % (Auto) Baso % (Auto) Lymph # [place] # Eos # Baso # Seg Neutrophils % Seg Neutrophils # PT 14.0 INR 1.11 APTT 32.3 VBG pH Sodium Potassium Chloride Carbon Dioxide Anion Gap BUN Creatinine Estimated GFR BUN/Creatinine Ratio Glucose POC Glucose Hemoglobin A1c < 4.2 Calcium Total Bilirubin Direct Bilirubin Indirect Bilirubin AST ALT Alkaline Phosphatase Total Protein Albumin Albumin/Globulin Ratio Lipase Urine Color Yellow Urine Turbidity Clear Urine pH 5.0 Ur Specific [place] 1.014 Urine Protein <15 mg/dl Urine Glucose (UA) >=500 Urine Ketones Tr Urine Blood Neg Urine Nitrite Neg Ur Reducing Substances Not Reportable Urine Bilirubin Neg Urine Ictotest Not Reportable Urine Urobilinogen < 2.0 Ur Leukocyte Esterase Neg Urine WBC (Auto) 1.0 Urine RBC (Auto) 2.0 U Epithel Cells (Auto) < 1.0 Urine Bacteria (Auto) 1+ Hyaline Casts 2 Urine Mucus Few Plasma/Serum Alcohol 04/27/19 04/27/19 04/28/19 18:15 23:56 06:28 WBC RBC Hgb Hct MCV MCH MCHC RDW Plt Count Lymph % (Auto) [place] % (Auto) Eos % (Auto) Baso % (Auto) Lymph # [place] # Eos # Baso # Seg Neutrophils % Seg Neutrophils # PT INR APTT VBG pH Sodium Potassium Chloride Carbon Dioxide Anion Gap BUN Creatinine Estimated GFR BUN/Creatinine Ratio Glucose POC Glucose 445 H 383 H 255 H Hemoglobin A1c Calcium Total Bilirubin Direct Bilirubin Indirect Bilirubin AST ALT Alkaline Phosphatase Total Protein Albumin Albumin/Globulin Ratio Lipase Urine Color Urine Turbidity Urine pH Ur Specific [place] Urine Protein Urine Glucose (UA) Urine Ketones Urine Blood Urine Nitrite Ur Reducing Substances Urine Bilirubin Urine Ictotest Urine Urobilinogen Ur Leukocyte Esterase Urine WBC (Auto) Urine RBC (Auto) U Epithel Cells (Auto) Urine Bacteria (Auto) Hyaline Casts Urine Mucus Plasma/Serum Alcohol 04/28/19 04/28/19 08:40 08:40 WBC 5.5 RBC 3.60 L Hgb 10.8 L Hct 32.2 L MCV 90 MCH 30 MCHC 34 RDW 12.8 L Plt Count 165 Lymph % (Auto) 26.9 [place] % (Auto) 7.8 H Eos % (Auto) 3.1 Baso % (Auto) 0.5 Lymph # 1.5 [place] # 0.4 Eos # 0.2 Baso # 0.0 Seg Neutrophils % 61.7 Seg Neutrophils # 3.4 PT INR APTT VBG pH Sodium 132 L D Potassium 3.8 D Chloride 96.2 L Carbon Dioxide 23 Anion Gap 17 BUN 43 H Creatinine 1.3 Estimated GFR > 60 BUN/Creatinine Ratio 33 Glucose 330 H POC Glucose Hemoglobin A1c Calcium 8.9 Total Bilirubin Direct Bilirubin Indirect Bilirubin AST ALT Alkaline Phosphatase Total Protein Albumin Albumin/Globulin Ratio Lipase Urine Color Urine Turbidity Urine pH Ur Specific [place] Urine Protein Urine Glucose (UA) Urine Ketones Urine Blood Urine Nitrite Ur Reducing Substances Urine Bilirubin Urine Ictotest Urine Urobilinogen Ur Leukocyte Esterase Urine WBC (Auto) Urine RBC (Auto) U Epithel Cells (Auto) Urine Bacteria (Auto) Hyaline Casts Urine Mucus Plasma/Serum Alcohol
[2019-04-28] MEDS: FOLVITE PO SCH (10:57)
[2019-04-28] MEDS: PEPCID PO SCH ×2 (10:57→22:33)
[2019-04-28] MEDS: HABITROL TD SCH (10:57)
[2019-04-28] MEDS ORDERED: PROTONIX PO SCH (11:00)
[2019-04-28] MEDS: SODIUM CHLORIDE FLUSH SYRINGE 10 ML IV SCH (11:01)
[2019-04-28] MEDS: HEPARIN SUB-Q SCH ×2 (11:01→22:33)
[2019-04-28] MEDS: LOPRESSOR PO SCH ×2 (11:41→22:33)
[2019-04-28] MEDS: NORVASC PO SCH (11:41)
[2019-04-28] MEDS: ZESTRIL PO SCH (11:42)
[2019-04-28] MEDS: PROTONIX IV SCH (14:39)
[2019-04-29 06:27] LABS: Hematocrit 29.7 % (35.5-45.6); Hemoglobin 10.3 gm/dl (11.8-15.2)
[2019-04-29] MEDS: HumaLOG SUB-Q SCH ×2 (08:49→13:53)
[2019-04-29] MEDS: NACL 0.9% 1000 ML 1,000 ML IV SCH (08:50)
[2019-04-29] MEDS: PEPCID PO SCH (10:31)
[2019-04-29] MEDS: HABITROL TD SCH (10:31)
[2019-04-29] MEDS: ZESTRIL PO SCH (10:31)
[2019-04-29] MEDS: NORVASC PO SCH (10:31)
[2019-04-29] MEDS: FOLVITE PO SCH (10:31)
[2019-04-29] MEDS: LOPRESSOR PO SCH (10:31)
[2019-04-29] MEDS: HEPARIN SUB-Q SCH (10:32)
[2019-04-29] MEDS: SODIUM CHLORIDE FLUSH SYRINGE 10 ML IV SCH ×2 (10:32→10:49)
--- NOTE | 2019-04-29 10:48 | Gastroenterology Progress Note ---
Assessment and Plan # Dark stools # Abdominal pain # Hyperglycemia. -H/H 10.3/29.7-stable -continue to monitor H/H and transfuse as needed -no active signs of bleeding overnight or this am per pt -etiology-suspect gastritis vs PUD in the setting of NSAID and alcohol use -clinically, patient is stable w/o GI complaints such as abd pain or N/V. -no plan for scope at this time -okay to resume diet -continue PPI -optimize glycemic control -alcohol cessation discussed/encouraged with patient -patient okay to be d/c per GI standpoint on PPI with f/u in clinic -will sign off, please call if needed Subjective Date of service: 04/29/19 Principal diagnosis: UGIB Interval history: Patient walking around the room this am w/o distress or GI complaints. Denies any active signs of bleeding overnight or this am. No abd pain or N/V. Objective - Constitutional Vitals: Temp Pulse Resp BP Pulse Ox 98.7 F 67 20 109/64 100 04/29/19 05:02 04/29/19 05:02 04/29/19 05:02 04/29/19 05:02 04/29/19 05:02 General appearance: no acute distress - Respiratory Respiratory effort: normal - Cardiovascular Rhythm: regular - Gastrointestinal General gastrointestinal: Present: soft, non-tender, non-distended, normal bowel sounds - Labs CBC & Chem 7: 04/29/19 06:09 04/28/19 08:40 Labs: Laboratory Results - last 24 hr 04/27/19 04/28/19 04/28/19 15:16 11:33 17:02 Hgb Hct POC Glucose > 500 H 479 H 349 H 04/28/19 04/29/19 04/29/19 21:32 05:03 06:09 Hgb 10.3 L Hct 29.7 L POC Glucose 355 H 153 H
[2019-04-29 12:58] VITALS: BP 118/68
--- NOTE | 2019-04-29 15:11 | Discharge Summary ---
Providers - Providers Date of Admission: 04/27/19 18:00 Date of discharge: 04/29/19 Attending physician: PATRICA MARION 04/27/19 16:33 Consult to Physician [CONS] Stat Comment: Consulting Provider: SILVANA ZHANG Physician Instructions: Reason For Exam: UGIB [facility] Condition: Stable Disposition: DC-01 TO HOME OR SELFCARE Time spent for discharge: 32 min Core Measure Documentation - Palliative Care Palliative Care/ Comfort Measures: Not Applicable - Core Measures Any of the following diagnoses?: history only Exam - Constitutional Vitals: Temp Pulse Resp BP Pulse Ox 97.9 F 63 20 118/68 98 04/29/19 12:19 04/29/19 12:19 04/29/19 12:19 04/29/19 12:19 04/29/19 12:19 General appearance: Present: no acute distress, well-nourished - EENT Eyes: Present: PERRL, EOM intact - Neck Neck: Present: supple, normal ROM - Respiratory Respiratory effort: normal Respiratory: bilateral: diminished, negative: rales, rhonchi, wheezing - Cardiovascular Rhythm: regular Heart Sounds: Present: S1 & S2 - Extremities Extremities: no ischemia, No edema - Abdominal General gastrointestinal: Present: soft, non-tender, non-distended, normal bowel sounds - Integumentary Integumentary: Present: clear, warm - Musculoskeletal Musculoskeletal: strength equal bilaterally - Psychiatric Psychiatric: appropriate mood/affect, cooperative - Neurologic Neurologic: CNII-XII intact, moves all extremities Plan Activity: no restrictions Diet: diabetic Additional Instructions: Advised to see private aeronautical inspector in 3-5 days Follow up with: ZION LAND MD [Referring] - 3-5 Days SILVANA ZHANG MD [Staff Physician] - 7 Days Prescriptions: Nicotine [Habitrol] 14 mg TD QDAY #30 patch Insulin NPH Hum/Reg Insulin Hm [Humulin 70/30 Kwikpen] 18 unit SQ BID #1 [email or web address] Insulin Regular, Human [Humulin R U-500 Kwikpen] See Protocol SQ ACHS #1 [email or web address] Famotidine [Pepcid] 10 mg PO BID #20 tablet
== END 2019-04-29 17:03 | disposition home or self-care (01) | DRG 377 ==
LOC: ED 14:58 → 3A 18:00
PROVIDERS: ADMIT Internal Medicine; ATTEND Internal Medicine
DX: K92.1 Melena (principal); N17.0 Acute kidney failure with tubular necrosis; E87.2 Acidosis; I42.9 Cardiomyopathy, unspecified; E87.1 Hypo-osmolality and hyponatremia; F10.20 Alcohol dependence, uncomplicated; E11.65 Type 2 diabetes mellitus with hyperglycemia; F17.200 Nicotine dependence, unspecified, uncomplicated; Y90.9 Presence of alcohol in blood, level not specified; Z60.2 Problems related to living alone; E78.00 Pure hypercholesterolemia, unspecified; I10 Essential (primary) hypertension; E78.5 Hyperlipidemia, unspecified; Z95.0 Presence of cardiac pacemaker; Z83.3 Family history of diabetes mellitus; Z82.49 Family history of ischemic heart disease and other diseases of the circulatory system; Z90.49 Acquired absence of other specified parts of digestive tract; Z79.84 Long term (current) use of oral hypoglycemic drugs; Z79.899 Other long term (current) drug therapy
CPT/HCPCS: 36415; 80048; 80076; 80320; 81001; 82270; 82805; 82962; 83036; 83690; 85014; 85018; 85025; 85610; 85730; 87116; 93005; 93010; 96374; 96375; G0378; A9270-GY; C9113; G0480; J1644; J1815; J7030

== ENCOUNTER 2019-05-06 21:24 | Inpatient (IN) | payer OTHER ==
--- NOTE | 2019-05-06 21:49 | Event Note ---
ED Screening Note ED Screening Note: +photophobia +dizziness off balance no VILLAR +nausea one episode of emesis began for the last 2-3 days +dark urine no diarrhea no rectal bleeding no hematochezia takes amlodipine and lisinpril took them today PMHx DM, HTN This initial assessment/diagnostic orders/clinical plan/treatment(s) is/are subject to change based on patients health status, clinical progression and re- assessment by fellow clinical providers in the ED. Further treatment and workup at subsequent clinical providers discretion. Patient/guardian urged not to elope from the ED as their condition may be serious if not clinically assessed and managed. Initial orders include: labs, EKG, UA, Ct head
[2019-05-06] MEDS ORDERED: NACL 0.9% 1000 ML 1,000 ML IV ONE ×2 (22:18→23:03)
[2019-05-06 22:32] LABS: Basophils % (Auto) 0.3 % (0.0-1.8); Eosinophils # (Auto) 0.1 K/mm3 (0.0-0.4); Eosinophils % (Auto) 1.7 % (0.0-4.3); Hemoglobin 9.7 gm/dl (11.8-15.2); Lymphocytes # (Auto) 1.3 K/mm3 (1.2-5.4); Lymphocytes % (Auto) 16.4 % (13.4-35.0); Mean Corpuscular HGB Conc 35 % (32-34); Mean Corpuscular Volume 94 fl (84-94); Monocytes # (Auto) 0.5 K/mm3 (0.0-0.8); Monocytes % (Auto) 6.2 % (0.0-7.3); Platelet Count 322 K/mm3 (140-440); Red Blood Count 2.99 M/mm3 (3.65-5.03); Red Cell Distribution Width 14.3 % (13.2-15.2)
[2019-05-06 22:49] LABS: Albumin 4.9 g/dL (3.9-5); Calcium 10.8 mg/dL (8.4-10.2)
--- NOTE | 2019-05-06 23:39 | Emergency Department Report ---
ED Dizziness HPI - General Chief Complaint: Dizziness Stated Complaint: DIZZINESS AND EYE SENSITIVITY Time Seen by Provider: 05/06/19 21:44 Source: patient Mode of arrival: Ambulatory Limitations: No Limitations - History of Present Illness Initial Comments: 63-year-old male presents to ED with dizziness and lightheadedness 4 days. Patient has history of hypertension, diabetes, alcohol abuse and was recently discharged one week ago for MARY, hyperglycemia, upper GI bleed. Patient reportedly had been having dark-colored stools, was seen and evaluated by GI, however he was advised to follow up as an outpatient. Today, patient denies fever, chest pain, shortness of breath, vomiting, diarrhea, abdominal pain, dark or bloody stool. Patient states he is still taking blood pressure [facility] Complaint: dizziness, lightheadedness -: days(s) (4) Description: lightheadedness Severity: moderate Improves With: nothing Worsens With: nothing Associated Symptoms: denies: chest pain, fever/chills, shortness of breath - Related Data Home Medications Medication Instructions Recorded Confirmed Last Taken Atorvastatin [Lipitor] 80 mg PO DAILY 04/27/19 04/27/19 Unknown Lisinopril [Zestril TAB] 40 mg PO DAILY 04/27/19 04/27/19 Unknown Metoprolol [Lopressor TAB] 100 mg PO BID 04/27/19 04/27/19 Unknown amLODIPine [Norvasc] 10 mg PO DAILY 04/27/19 04/27/19 Unknown Previous Rx's Medication Instructions Recorded Last Taken Type Famotidine [Pepcid] 10 mg PO BID #20 tablet 04/29/19 Unknown Rx Insulin NPH Hum/Reg Insulin Hm 18 unit SQ BID #1 insuln.pen 04/29/19 Unknown Rx [Humulin 70/30 Kwikpen] Insulin Regular, Human [Humulin R See Protocol SQ ACHS #1 insuln.pen 04/29/19 Unknown Rx U-500 Kwikpen] Nicotine [Habitrol] 14 mg TD QDAY #30 patch 04/29/19 Unknown Rx Allergies Allergy/AdvReac Type Severity Reaction Status Date / Time No Known Allergies Allergy Verified 05/06/19 21:31 ED Review of Systems ROS: Stated complaint: DIZZINESS AND EYE SENSITIVITY Other details as noted in HPI Comment: All other systems reviewed and negative Constitutional: denies: chills, fever Respiratory: denies: cough, shortness of breath Cardiovascular: denies: chest pain Gastrointestinal: denies: abdominal pain, nausea, vomiting, melena, hematochezia Neurological: headache ED Past Medical Hx - Past Medical History Previous Medical History?: Yes Hx Hypertension: Yes Hx Congestive Heart Failure: No Hx Diabetes: Yes Hx Asthma: No Hx COPD: No Additional medical history: high cholesterol - Surgical History Past Surgical History?: Yes Hx Appendectomy: Yes Additional Surgical History: hernia repair. pacemaker - Social History Smoking Status: Current Every Day Smoker Substance Use Type: Alcohol - Medications Home Medications: Home Medications Medication Instructions Recorded Confirmed Last Taken Type Atorvastatin [Lipitor] 80 mg PO DAILY 04/27/19 04/27/19 Unknown History Lisinopril [Zestril TAB] 40 mg PO DAILY 04/27/19 04/27/19 Unknown History Metoprolol [Lopressor TAB] 100 mg PO BID 04/27/19 04/27/19 Unknown History amLODIPine [Norvasc] 10 mg PO DAILY 04/27/19 04/27/19 Unknown History Famotidine [Pepcid] 10 mg PO BID #20 tablet 04/29/19 Unknown Rx Insulin NPH Hum/Reg Insulin Hm 18 unit SQ BID #1 insuln.pen 04/29/19 Unknown Rx [Humulin 70/30 Kwikpen] Insulin Regular, Human [Humulin R See Protocol SQ ACHS #1 insuln.pen 04/29/19 Unknown Rx U-500 Kwikpen] Nicotine [Habitrol] 14 mg TD QDAY #30 patch 04/29/19 Unknown Rx ED Physical Exam - General Limitations: No Limitations General appearance: alert, in no apparent distress - Head Head exam: Present: atraumatic, normocephalic - Eye Eye exam: Present: normal appearance, PERRL, EOMI - ENT ENT exam: Present: mucous membranes moist - Neck Neck exam: Present: normal inspection - Respiratory Respiratory exam: Present: normal lung sounds bilaterally. Absent: respiratory distress - Cardiovascular Cardiovascular Exam: Present: regular rate, normal rhythm - GI/Abdominal GI/Abdominal exam: Present: soft. Absent: distended, tenderness - Rectal Rectal exam: Present: heme (-) stool - Extremities Exam Extremities exam: Present: normal inspection - Neurological Exam Neurological exam: Present: alert, oriented X3, CN II-XII intact. Absent: motor sensory deficit - Psychiatric Psychiatric exam: Present: normal affect, normal mood - Skin Skin exam: Present: warm, dry, intact, normal color ED Course Vital Signs 05/06/19 05/06/19 05/06/19 21:34 21:46 22:30 Temperature 97.5 F L 97.5 F L Pulse Rate 81 82 Respiratory 16 20 Rate Blood Pressure 87/49 73/44 77/43 O2 Sat by Pulse 98 98 96 Oximetry 05/06/19 05/06/19 05/06/19 22:46 23:00 23:15 Temperature Pulse Rate Respiratory 16 Rate Blood Pressure 90/50 98/51 113/59 O2 Sat by Pulse 99 99 97 Oximetry 05/06/19 05/06/19 05/06/19 23:30 23:45 23:51 Temperature Pulse Rate Respiratory Rate Blood Pressure 103/48 121/49 121/49 O2 Sat by Pulse 96 88 92 Oximetry 05/07/19 05/07/19 05/07/19 00:01 00:03 00:30 Temperature Pulse Rate 66 Respiratory Rate Blood Pressure 138/39 108/52 O2 Sat by Pulse 98 96 Oximetry 05/07/19 05/07/19 05/07/19 01:00 01:30 02:00 Temperature Pulse Rate Respiratory Rate Blood Pressure 121/50 132/69 126/62 O2 Sat by Pulse 94 100 95 Oximetry ED Medical Decision Making - Lab Data Result diagrams: 05/06/19 22:10 05/06/19 22:10 - EKG Data -: EKG Interpreted by Pr EKG shows normal: sinus rhythm, axis, intervals, QRS complexes Rate: normal - EKG Data Interpretation: other (inferior T wave inversions) - Medical Decision Making 63 yo M presents with dizziness and hypotension. Initial BP 70s/40s. Denies vomiting, diarrhea, fever, abd pain. Reports normal PO intake. Denies rectal bleeding. Recently discharged from here 1 week ago. Blood pressures seemed to be low-normal at that time. Pt states he has still been taking his [facility]. Pt is also a chronic alcoholic, this could be contributing to his low blood pressures as well. Only small decrease in Hb compared to last week. Stool guiac negative for blood. No sign of infection, pt is afebrile, WBCs normal. Pt given fluid resuscitation with 2L NS. BP improved. Creatnine increased compared to last admission. Will admit to hospitalist, Dr Gonzalez, for further evaluation. - Differential Diagnosis GI bleed, infection, dehydration, medication effect Critical Care Time: Yes Critical care time in (mins) excluding proc time.: 35 Critical care attestation.: If time is entered above; I have spent that time in minutes in the direct care of this critically ill patient, excluding procedure time. Critical Care Time: 35 minutes ED Disposition Clinical Impression: MARY (acute kidney injury), Hypotension Disposition: -09 OP ADMIT IP TO THIS HOSP Is pt being admited?: Yes Condition: Stable Referrals: [facility] [Other] - 3-5 Days Time of Disposition: 00:24
[2019-05-07] MEDS ORDERED: SODIUM CHLORIDE FLUSH SYRINGE 10 ML IV PRN (01:20)
[2019-05-07] MEDS ORDERED: NORCO 5/325 PO PRN (01:20)
[2019-05-07] MEDS ORDERED: ZOFRAN IV PRN (01:20)
[2019-05-07] MEDS ORDERED: AMBIEN PO PRN (01:20)
[2019-05-07] MEDS ORDERED: TYLENOL PO PRN (01:20)
[2019-05-07] MEDS ORDERED: D50W (25GM) Syringe IV PRN (02:45)
--- NOTE | 2019-05-07 03:38 | History and Physical Report ---
History of Present Illness Date of examination: 05/07/19 Date of admission: 05/07/19 01:20 Chief complaint: Confusion History of present illness: Patient is a 63-year-old -[place] male with history of hypertension and DM2 who presented to the ED on account of 2-3 days history of confusion. He has associated generalized weakness with easy fatigability and lightheadedness. He denies cough, fever, chills, chest pain, shortness of breath, headaches, nausea, vomiting, abdominal pain, diarrhea, syncope or loss of consciousness. 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 Of note, he was recently discharged from the hospital for same complaints. Past History Past Medical History: diabetes, hypertension, hyperlipidemia Past Surgical History: appendectomy, hernia repair, Other (pacemaker placement) Social history: smoking (patient has more than 40 years history of cigarette smoking. He currently smokes 1 pack per day. He admits to occasional alcohol use but per his chart, he has hx of alcohol abuse. He denies illicit drug use) Family history: diabetes (sister) Medications and Allergies Allergies Allergy/AdvReac Type Severity Reaction Status Date / Time No Known Allergies Allergy Verified 05/06/19 21:31 Home Medications Medication Instructions Recorded Confirmed Last Taken Type Atorvastatin [Lipitor] 80 mg PO DAILY 04/27/19 04/27/19 Unknown History Lisinopril [Zestril TAB] 40 mg PO DAILY 04/27/19 04/27/19 Unknown History Metoprolol [Lopressor TAB] 100 mg PO BID 04/27/19 04/27/19 Unknown History amLODIPine [Norvasc] 10 mg PO DAILY 04/27/19 04/27/19 Unknown History Famotidine [Pepcid] 10 mg PO BID #20 tablet 04/29/19 Unknown Rx Insulin NPH Hum/Reg Insulin Hm 18 unit SQ BID #1 insuln.pen 04/29/19 Unknown Rx [Humulin 70/30 Kwikpen] Insulin Regular, Human [Humulin R See Protocol SQ ACHS #1 insuln.pen 04/29/19 Unknown Rx U-500 Kwikpen] Nicotine [Habitrol] 14 mg TD QDAY #30 patch 04/29/19 Unknown Rx Active Meds: Active Medications Acetaminophen (Tylenol) 650 mg PO Q4H PRN PRN Reason: Pain MILD(1-3)/Fever >100.5/VILLAR Acetaminophen/Hydrocodone Bitart ([place] 5/325) 1 each PO Q6H PRN PRN Reason: Pain, Moderate (4-6) Dextrose (D50w (25gm) Syringe) 50 ml IV PRN PRN PRN Reason: Hypoglycemia Famotidine (Pepcid) 10 mg PO BID NADIA Sodium Chloride (Nacl 0.9% 1000 Ml) 1,000 mls @ 150 mls/hr IV DIRECT NADIA Insulin Glargine (Lantus) 10 units SUB-Q QHS NADIA Insulin Human Lispro (Humalog) 0 unit SUB-Q ACHS NADIA; Protocol Ondansetron HCl (Zofran) 4 mg IV Q8H PRN PRN Reason: Nausea And Vomiting Sodium Chloride (Sodium Chloride Flush Syringe 10 Ml) 10 ml IV BID NADIA Sodium Chloride (Sodium Chloride Flush Syringe 10 Ml) 10 ml IV PRN PRN PRN Reason: LINE FLUSH Zolpidem Tartrate (Ambien) 5 mg PO QHS PRN PRN Reason: Insomnia Review of Systems All systems: negative (all other systems reviewed with the patient and are negative unless otherwise stated) Exam - Constitutional Vitals: Temp Pulse Resp BP Pulse Ox 97.5 F L 55 L 16 129/59 97 05/06/19 21:46 05/07/19 03:02 05/06/19 23:00 05/07/19 03:01 05/07/19 03:01 General appearance: Present: no acute distress, well-nourished - EENT Eyes: Present: PERRL, EOM intact ENT: hearing intact, clear oral mucosa - Neck Neck: Present: supple, normal ROM - Respiratory Respiratory effort: normal Respiratory: bilateral: CTA - Cardiovascular Rhythm: regular Heart Sounds: Present: S1 & S2. Absent: rub, click - Extremities Extremities: pulses symmetrical, No edema Peripheral Pulses: within normal limits - Abdominal General gastrointestinal: Present: soft, non-tender, non-distended, normal bowel sounds Male genitourinary: Present: deferred - Integumentary Integumentary: Present: clear, warm, dry - Musculoskeletal Musculoskeletal: gait normal, strength equal bilaterally - Psychiatric Psychiatric: appropriate mood/affect, intact judgment & insight - Neurologic Neurologic: CNII-XII intact, moves all extremities Results - Labs CBC & Chem 7: 05/06/19 22:10 05/06/19 22:10 Labs: Laboratory Last Values WBC 8.1 K/mm3 (4.5-11.0) 05/06/19 22:10 RBC 2.99 M/mm3 (3.65-5.03) L 05/06/19 22:10 Hgb 9.7 gm/dl (11.8-15.2) L 05/06/19 22:10 Hct 28.0 % (35.5-45.6) L 05/06/19 22:10 MCV 94 fl (84-94) 05/06/19 22:10 MCH 32 pg (28-32) 05/06/19 22:10 MCHC 35 % (32-34) H 05/06/19 22:10 RDW 14.3 % (13.2-15.2) 05/06/19 22:10 Plt Count 322 K/mm3 (140-440) 05/06/19 22:10 Lymph % (Auto) 16.4 % (13.4-35.0) 05/06/19 22:10 [place] % (Auto) 6.2 % (0.0-7.3) 05/06/19 22:10 Eos % (Auto) 1.7 % (0.0-4.3) 05/06/19 22:10 Baso % (Auto) 0.3 % (0.0-1.8) 05/06/19 22:10 Lymph # 1.3 K/mm3 (1.2-5.4) 05/06/19 22:10 [place] # 0.5 K/mm3 (0.0-0.8) 05/06/19 22:10 Eos # 0.1 K/mm3 (0.0-0.4) 05/06/19 22:10 Baso # 0.0 K/mm3 (0.0-0.1) 05/06/19 22:10 Seg Neutrophils % 75.4 % (40.0-70.0) H 05/06/19 22:10 Seg Neutrophils # 6.1 K/mm3 (1.8-7.7) 05/06/19 22:10 Sodium 141 mmol/L (137-145) 05/06/19 22:10 Potassium 4.2 mmol/L (3.6-5.0) 05/06/19 22:10 Chloride 102.7 mmol/L (98-107) 05/06/19 22:10 Carbon Dioxide 22 mmol/L (22-30) 05/06/19 22:10 21 mmol/L 05/06/19 22:10 BUN 32 mg/dL (9-20) H 05/06/19 22:10 2.6 mg/dL (0.8-1.5) H 05/06/19 22:10 Estimated GFR 30 ml/min 05/06/19 22:10 12 % 05/06/19 22:10 Glucose 217 mg/dL (75-100) H 05/06/19 22:10 Calcium 10.8 mg/dL (8.4-10.2) H 05/06/19 22:10 1.00 mg/dL (0.1-1.2) 05/06/19 22:10 AST 26 units/L (5-40) 05/06/19 22:10 ALT 54 units/L (7-56) 05/06/19 22:10 86 units/L (35-129) 05/06/19 22:10 132 units/L (55-170) 05/06/19 22:10 < 0.010 ng/mL (0.00-0.029) 05/07/19 00:40 7.7 g/dL (6.3-8.2) 05/06/19 22:10 4.9 g/dL (3.9-5) 05/06/19 22:10 1.8 % 05/06/19 22:10 Assessment and Plan Assessment and plan: MARY -Likely vasomotor nephropathy due to dehydration -On IV fluid, will monitor creatinine level Hypotension -Likely due to hypovolemia -Blood pressure responsive to IV fluid bolus -We'll continue maintenance IV fluid and monitor blood pressure DM2 with hyperglycemia -On SSI and Lantus Hypercalcemia -On IV fluid, will monitor ca level Chronic anemia -H&H stable History of polysubstance abuse (tobacco and alcohol) -Monitor for alcohol withdrawal -Cessation recommended DVT prophylaxis with SCD Disposition: Patient will be admitted in observation status with plan for disc harge if creatinine level improves Time spent: 38 minutes
[2019-05-07] MEDS: NACL 0.9% 1000 ML 1,000 ML IV SCH ×2 (06:59→19:40)
[2019-05-07 08:10] LABS: Bilirubin,Urine NEG (Negative); Blood,Urine NEG (Negative); Color,Urine Yellow (Yellow); Mucus,Urine FEW /HPF; Protein,Urine <15 mg/dL mg/dL (Negative); Sperm,Urine FEW /HPF (NP); Urobilinogen,Urine < 2.0 mg/dL (<2.0)
[2019-05-07] MEDS: HumaLOG SUB-Q SCH ×4 (09:26→22:47)
[2019-05-07] MEDS: PEPCID PO SCH ×2 (09:38→22:46)
[2019-05-07] MEDS: SODIUM CHLORIDE FLUSH SYRINGE 10 ML IV SCH ×2 (09:39→22:50)
[2019-05-07 09:47] LABS: BUN/Creatinine Ratio 16; Blood Urea Nitrogen 23 mg/dL (9-20); Calcium 9.7 mg/dL (8.4-10.2); Hemolysis Index 1
--- NOTE | 2019-05-07 12:38 | Cat Scan Report ---
CT head without contrast INDICATION : dizziness. TECHNIQUE: Axial imaging performed from the skull apex through the skull base without the use of con trast. All CT scans at this location are performed using CT dose reduction for ALARA by means of aut omated exposure control. COMPARISON: None FINDINGS: Parenchyma: No acute intracranial hemorrhage or parenchymal abnormality. Ventricles: Ventricles are normal in size and appear symmetric. Soft tissues: Soft tissues including the orbits appear normal. Bones: No acute osseous abnormality. Sinuses: Sinuses and mastoid air cells are clear. IMPRESSION: Normal head CT. Signer Name: Adrian Polo MD Signed: 05/07/2019 12:34 PM Workstation Name: [id number]
[2019-05-07] MEDS: HABITROL TD SCH (12:53)
--- NOTE | 2019-05-07 16:53 | Event Note ---
Date: 05/07/19 Patient seen and examined Presented with MARY, hypertension and dizziness will follow renal function, obtain CT head, optimize insulin dose, monitor BP, get orthostatic vitals obtain blood cx
[2019-05-07] MEDS ORDERED: LANTUS SUB-Q SCH (22:00)
[2019-05-08 05:20] LABS: Hematocrit 23.2 % (35.5-45.6); Hemoglobin 7.9 gm/dl (11.8-15.2); Mean Corpuscular HGB Conc 34 % (32-34); Mean Corpuscular Volume 95 fl (84-94); Platelet Count 275 K/mm3 (140-440); Red Blood Count 2.45 M/mm3 (3.65-5.03); Red Cell Distribution Width 15.5 % (13.2-15.2)
[2019-05-08 05:47] LABS: BUN/Creatinine Ratio 16; Blood Urea Nitrogen 16 mg/dL (9-20); Calcium 8.7 mg/dL (8.4-10.2); Hemolysis Index 7
[2019-05-08] MEDS: NACL 0.9% 1000 ML 1,000 ML IV SCH ×2 (06:16→17:22)
[2019-05-08] MEDS: HumaLOG SUB-Q SCH ×4 (08:57→22:52)
[2019-05-08] MEDS: PROAMATINE PO SCH ×3 (08:58→17:20)
[2019-05-08] MEDS: HABITROL TD SCH (09:05)
[2019-05-08] MEDS: PROTONIX IV SCH ×2 (09:05→22:52)
[2019-05-08] MEDS: SODIUM CHLORIDE FLUSH SYRINGE 10 ML IV SCH ×2 (09:06→22:53)
[2019-05-08] MEDS ORDERED: NON-FORMULARY (Atorvastatin [Lipitor] 80 MG) PO SCH (10:00)
[2019-05-08 10:05] LABS: Iron 73 ug/dL (49-181); Total Iron Binding Capacity 216 mcg/dL (250-450)
[2019-05-08 12:03] LABS: Hematocrit 22.7 % (35.5-45.6); Hemoglobin 7.8 gm/dl (11.8-15.2)
--- NOTE | 2019-05-08 12:35 | Progress Note ---
Assessment and Plan Macrocytic Anemia with drop in H/H - low folic acid level - start replacement - check stool for occult blood MARY -Likely vasomotor nephropathy due to dehydration -On IV fluid, will monitor creatinine level Hypotension -Likely due to hypovolemia -Blood pressure responsive to IV fluid bolus -We'll continue maintenance IV fluid and monitor blood pressure DM2 with hyperglycemia -On SSI and Lantus Hypercalcemia -On IV fluid, will monitor ca level History of polysubstance abuse (tobacco and alcohol) -Monitor for alcohol withdrawal -Cessation recommended DVT prophylaxis with SCD Subjective Date of service: 05/08/19 Interval history: Patient seen and examined Denies any chest pain BP still at low side H&H's dropped to 7.8 Denies any active bleeding Last BM was 2 days ago Objective - Constitutional Vitals: Vital Signs - 12hr 05/08/19 05/08/19 05:09 06:34 Temperature 98.7 F Pulse Rate 67 79 Respiratory 17 Rate Blood Pressure 123/61 Blood Pressure 105/63 [Right] O2 Sat by Pulse 95 96 Oximetry General appearance: Present: no acute distress, well-nourished - EENT Eyes: PERRL, EOM intact ENT: hearing intact, clear oral mucosa Ears: bilateral: normal - Neck Neck: supple, normal ROM - Respiratory Respiratory effort: normal Respiratory: bilateral: CTA - Cardiovascular Rhythm: regular Heart Sounds: Present: S1 & S2. Absent: gallop, rub Extremities: pulses intact, No edema, normal color, Full ROM - Gastrointestinal General gastrointestinal: Present: soft, non-tender, non-distended, normal bowel sounds - Genitourinary Male genitourinary: normal - Integumentary Integumentary: clear, warm, dry - Musculoskeletal Musculoskeletal: 1, strength equal bilaterally - Neurologic Neurologic: moves all extremities - Psychiatric Psychiatric: memory intact, appropriate mood/affect, intact judgment & insight - Labs CBC & Chem 7: 05/09/19 07:31 05/08/19 04:51 Labs: Abnormal lab results 05/07/19 05/07/19 05/08/19 Range/Units 16:35 22:04 04:51 RBC (3.65-5.03) M/mm3 Hgb (11.8-15.2) gm/dl Hct (35.5-45.6) % MCV (84-94) fl RDW (13.2-15.2) % Chloride 108.1 H (98-107) mmol/L Carbon Dioxide 19 L (22-30) mmol/L Glucose 146 H (75-100) mg/dL POC Glucose 244 H 328 H (70-105) TIBC (250-450) mcg/dL Vitamin B12 (211-911) pg/mL Folate (7.3-26.0) ng/mL 05/08/19 05/08/19 05/08/19 Range/Units 04:51 07:49 09:32 RBC 2.45 L (3.65-5.03) M/mm3 Hgb 7.9 L (11.8-15.2) gm/dl Hct 23.2 L (35.5-45.6) % MCV 95 H (84-94) fl RDW 15.5 H (13.2-15.2) % Chloride (98-107) mmol/L Carbon Dioxide (22-30) mmol/L Glucose (75-100) mg/dL POC Glucose 181 H (70-105) TIBC (250-450) mcg/dL Vitamin B12 1710 H (211-911) pg/mL Folate (7.3-26.0) ng/mL 05/08/19 05/08/19 05/08/19 Range/Units 09:32 09:33 11:33 RBC (3.65-5.03) M/mm3 Hgb 7.8 L (11.8-15.2) gm/dl Hct 22.7 L (35.5-45.6) % MCV (84-94) fl RDW (13.2-15.2) % Chloride (98-107) mmol/L Carbon Dioxide (22-30) mmol/L Glucose (75-100) mg/dL POC Glucose (70-105) TIBC 216 L (250-450) mcg/dL Vitamin B12 (211-911) pg/mL Folate 6.25 L (7.3-26.0) ng/mL 05/08/19 Range/Units 11:43 RBC (3.65-5.03) M/mm3 Hgb (11.8-15.2) gm/dl Hct (35.5-45.6) % MCV (84-94) fl RDW (13.2-15.2) % Chloride (98-107) mmol/L Carbon Dioxide (22-30) mmol/L Glucose (75-100) mg/dL POC Glucose 302 H (70-105) TIBC (250-450) mcg/dL Vitamin B12 (211-911) pg/mL Folate (7.3-26.0) ng/mL
[2019-05-08] MEDS: FOLVITE PO SCH (13:09)
[2019-05-08] MEDS: MIRALAX 3350 PO SCH (13:14)
[2019-05-09] MEDS: NACL 0.9% 1000 ML 1,000 ML IV SCH ×2 (02:55→11:52)
[2019-05-09 07:46] LABS: Hematocrit 22.5 % (35.5-45.6); Hemoglobin 7.6 gm/dl (11.8-15.2)
[2019-05-09] MEDS: HumaLOG SUB-Q SCH ×2 (08:30→12:59)
[2019-05-09] MEDS: PROAMATINE PO SCH ×3 (09:52→13:33)
[2019-05-09] MEDS: FOLVITE PO SCH (09:53)
[2019-05-09] MEDS: PROTONIX IV SCH (09:53)
[2019-05-09] MEDS: HABITROL TD SCH (09:53)
[2019-05-09] MEDS: MIRALAX 3350 PO SCH (09:53)
[2019-05-09] MEDS: SODIUM CHLORIDE FLUSH SYRINGE 10 ML IV SCH (09:54)
[2019-05-09 10:13] VITALS: BP 121/62
--- NOTE | 2019-05-09 13:49 | Discharge Summary ---
Providers - Providers Date of Admission: 05/08/19 15:22 Date of discharge: 05/09/19 Attending physician: MARK FRANKS 05/07/19 12:36 Physical Therapy Evaluation and Treat [CONS] Routine Comment: Reason For Exam: placement Hospitalization Condition: Stable Pertinent studies: Head CT Hospital course: Discharge Diagnosis: Macrocytic Anemia with drop in H/H - low folic acid level - start replacement - check stool for occult blood MARY -Likely vasomotor nephropathy due to dehydration -On IV fluid, will monitor creatinine level Hypotension -Likely due to hypovolemia -Blood pressure responsive to IV fluid bolus -We'll continue maintenance IV fluid and monitor blood pressure DM2 with hyperglycemia -On SSI and Lantus Hypercalcemia -On IV fluid, will monitor ca level History of polysubstance abuse (tobacco and alcohol) -Monitor for alcohol withdrawal -Cessation recommended DVT prophylaxis with SCD Disposition: DC- TO HOME OR SELFCARE Time spent for discharge: 34 minutes Core Measure Documentation - Palliative Care Palliative Care/ Comfort Measures: Not Applicable - Core Measures Any of the following diagnoses?: none Exam - Constitutional Vitals: Temp Pulse Resp BP Pulse Ox 98.0 F 62 18 121/62 99 05/09/19 09:59 05/09/19 09:59 05/09/19 09:59 05/09/19 09:59 05/09/19 09:59 Plan Activity: advance as tolerated Weight Bearing Status: Weight Bear as Tolerated Diet: regular Special Instructions: record daily BP diary Additional Instructions: F/u with GI in a week for possible outpt EGD Follow up with: [facility] [Other] - 3-5 Days Forms: Work/School Release Form Prescriptions: Folic Acid [Folvite] 1 mg PO QDAY #30 tablet Midodrine [Proamatine] 10 mg PO TID@0800,1200,1600 #30 tablet Pantoprazole [Protonix] 40 mg PO QDAY #30 tablet
== END 2019-05-09 16:00 | disposition home or self-care (01) | DRG 314 ==
LOC: ED 21:24 → INTOOBSV 05-07 01:20 → 3A 05-07 01:20 → OBSVTOIN 05-08 15:22
PROVIDERS: ADMIT Internal Medicine; ATTEND Internal Medicine
DX: I95.9 Hypotension, unspecified (principal); N17.0 Acute kidney failure with tubular necrosis; D53.9 Nutritional anemia, unspecified; E86.0 Dehydration; E86.1 Hypovolemia; E11.65 Type 2 diabetes mellitus with hyperglycemia; E83.52 Hypercalcemia; I10 Essential (primary) hypertension; F17.210 Nicotine dependence, cigarettes, uncomplicated; Z72.89 Other problems related to lifestyle; Z90.49 Acquired absence of other specified parts of digestive tract; Z95.0 Presence of cardiac pacemaker; Z79.899 Other long term (current) drug therapy; Z79.4 Long term (current) use of insulin; Z83.3 Family history of diabetes mellitus
CPT/HCPCS: 36415; 70450; 80048; 80053; 81001; 82550; 82607; 82747; 82962; 83550; 84484; 85014; 85018; 85025; 85027; 87040; 87116; 93005; 93010; 99406; G0378; A9270-GY; C9113; J1815; J7030